=== PATIENT | male | born 1975 | race Caucasian/White ===

== ENCOUNTER 2016-10-31 08:15 | Emergency (ER) | payer OTHER ==
[~2016-10-31] VITALS: Ht 185.4 cm; Wt 60.0 kg
[~2016-10-31 08:15] MED LIST: CIPRO500 MG OR; FLEXERIL PO; LORTAB 5 OR; MEDDOSEPAK PO; METHYLPRED4 MG PO; NAPROSYN500 MG OR; NAPROXEN375 MG PO; SOMA350 MG PO; TIZANIDINE HCL4 MG PO; ULTRAM50 M1 PO
[2016-10-31] MEDS ORDERED: MOTRIN800 MG PO (08:46)
[2016-10-31] MEDS ORDERED: PERCOCET 5/325M1 TAB PO (08:46)
[2016-10-31] MEDS ORDERED: FLEXERIL PO (08:46)
[2016-10-31 08:54] VITALS: BP 118/70
== END 2016-10-31 09:00 | disposition home or self-care (01) | DRG 552 ==
LOC: ED 08:15
DX: M54.31 Sciatica, right side (principal)

== ENCOUNTER 2018-09-12 22:04 | Emergency (ER) | payer MEDICAID ==
[~2018-09-12] VITALS: Ht 185.4 cm; Wt 70.0 kg
[~2018-09-12 22:04] MED LIST changes: +MOTRIN800 MG PO; +PERCOCET 5/325M1 TAB PO
[2018-09-12] MEDS ORDERED: DICLOFENAC SODI75 MG PO (22:17)
[2018-09-12] MEDS ORDERED: BACLOFEN10 MG PO (22:17)
[2018-09-12] MEDS ORDERED: KEFLEX500 MG PO (22:18)
[2018-09-12] MEDS ORDERED: IBUPROFEN600 MG PO (22:38)
[2018-09-12 22:46] VITALS: BP 113/60
== END 2018-09-12 22:55 | disposition home or self-care (01) ==
LOC: ED 22:04
DX: L02.414 Cutaneous abscess of left upper limb (principal); F17.210 Nicotine dependence, cigarettes, uncomplicated; M79.632 Pain in left forearm

== ENCOUNTER 2021-05-12 09:07 | Emergency (ER) | payer MEDICAID ==
[~2021-05-12] VITALS: Ht 185.4 cm; Wt 70.0 kg
[~2021-05-12 09:07] MED LIST changes: +BACLOFEN10 MG PO; +DICLOFENAC SODI75 MG PO; +IBUPROFEN600 MG PO; +KEFLEX500 MG PO
[2021-05-12 09:20] VITALS: BP 106/77
[2021-05-12 09:30] VITALS: BP 102/65
[2021-05-12 09:45] VITALS: BP 99/65
[2021-05-12 10:16] VITALS: BP 105/62
[2021-05-12 10:30] VITALS: BP 101/65
[2021-05-12] MEDS ORDERED: CYCLOBENZAPRINE10 MG PO (10:34)
[2021-05-12] MEDS ORDERED: ULTRAM50 M1 PO (10:34)
[2021-05-12 10:45] VITALS: BP 103/64
== END 2021-05-12 10:50 | disposition home or self-care (01) ==
LOC: ED 09:07
DX: M54.42 Lumbago with sciatica, left side (principal); F17.210 Nicotine dependence, cigarettes, uncomplicated

== ENCOUNTER 2021-07-28 22:26 | Emergency (ER) | payer MEDICAID ==
[~2021-07-28] VITALS: Ht 185.4 cm; Wt 68.1 kg
[~2021-07-28 22:26] MED LIST changes: +CYCLOBENZAPRINE10 MG PO
[2021-07-28 22:37] VITALS: BP 118/70
[2021-07-28 23:03] LABS: URINE BILIRUBIN - DIPSTICK NEGATIVE (NEGATIVE); URINE BLOOD DIPSTICK MODERATE (NEGATIVE); URINE COLOR YELLOW; URINE GLUCOSE - DIPSTICK NEGATIVE (NEGATIVE); URINE KETONE NEGATIVE (NEGATIVE); URINE PH 6.5 (4.5-8.0); URINE SPECIFIC GRAVITY 1.025
[2021-07-28 23:13] LABS: URINE LEUK ESTERASE SMALL (NEGATIVE); URINE NITRITE - DIPSTICK NEGATIVE (Negative)
[2021-07-28 23:14] LABS: URINE PROTEIN - DIPSTICK NEGATIVE (NEG-TRACE)
[2021-07-28 23:18] LABS: URINE RBC 50-100 RBC/hpf (0-5)
[2021-07-28 23:21] LABS: URINE BACTERIA MODERATE hpf; URINE EPITHELIAL CELLS MODERATE EPI/hpf (0-FEW); URINE TRICHOMONAS RARE hpf; URINE WBC 50-100 WBC/hpf (0-5)
[2021-07-28] MEDS ORDERED: BACTRIM DS1 TAB PO (23:41)
[2021-07-28 23:53] VITALS: BP 118/70
== END 2021-07-28 23:54 | disposition home or self-care (01) ==
LOC: ED 22:26
PROVIDERS: Family Medicine
DX: N34.2 Other urethritis (principal); T21.16XA Burn of first degree of male genital region, initial encounter; F17.210 Nicotine dependence, cigarettes, uncomplicated; X18.XXXA Contact with other hot metals, initial encounter; Y93.89 Activity, other specified

== ENCOUNTER 2023-10-21 10:19 | Emergency (ER) | payer SELFPAY ==
[2023-10-21] VITALS (7 sets, daily range): BP systolic 99–113; BP diastolic 59–72
[~2023-10-21] VITALS: Ht 185.4 cm; Wt 68.0 kg
[~2023-10-21 10:19] MED LIST changes: +BACTRIM DS1 TAB PO
[2023-10-21] MEDS ORDERED: Diph, Acellular Pertussis, Tet 0.5 ML/VIAL (Tdap) SDV IM ONE (10:30)
[2023-10-21] MEDS ORDERED: LIDOCAINE 4 % TOPICAL SOLUTION 50 ML TOP ONE (10:35)
[2023-10-21] MEDS ORDERED: AMOX/K CLAV875 M1 PO (11:35)
[2023-10-21] MEDS ORDERED: IBUPROFEN 800 MG/TAB PO ONE (11:40)
[2023-10-21] MEDS ORDERED: HYDROcodone 7.5 MG/Acetaminophen 325 MG/COMBO PO ONE (11:40)
== END 2023-10-21 11:55 | disposition home or self-care (01) | DRG 951 ==
LOC: ED 10:19
PROC: 0HQDXZZ Repair Right Lower Arm Skin, External Approach (ICD-10-PCS; principal; 2023-10-21)
DX: F17.200 Nicotine dependence, unspecified, uncomplicated (principal); S51.811A Laceration without foreign body of right forearm, initial encounter; W20.8XXA Other cause of strike by thrown, projected or falling object, initial encounter